=== PATIENT | male | born 2000 | race Caucasian/White ===

== ENCOUNTER 2018-03-11 14:15 | Emergency (ER) | payer OTHER ==
[2018-03-11 14:31] VITALS: BP 152/80; PULSE 94; TEMP 97.8; BMI 25.1
[2018-03-11] MEDS ORDERED: IBUPROFEN 600 MG TABLET (FP) PO ONE ×2 (15:09→15:14)
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
--- NOTE | 2018-03-12 14:03 | EKG ---
Test Reason : Blood Pressure : / mmHG Vent. Rate : 094 BPM Atrial Rate : 094 BPM P-R Int : 128 ms QRS Dur : 084 ms QT Int : 348 ms P-R-T Axes : 076 053 077 degrees QTc Int : 435 ms NORMAL SINUS RHYTHM NORMAL ECG NO PREVIOUS ECGS AVAILABLE Confirmed by MD Nehal, Tam ([id number]) on 03/12/2018 2:03:05 PM Referred By: Confirmed By:Tam Calvert MD
== END 2018-03-11 15:49 | disposition home or self-care (01) ==
LOC: JERFT 14:15
DX: S13.4XXA Sprain of ligaments of cervical spine, initial encounter (principal); S80.01XA Contusion of right knee, initial encounter; V43.52XA Car driver injured in collision with other type car in traffic accident, initial encounter; W22.11XA Striking against or struck by driver side automobile airbag, initial encounter; Y92.488 Other paved roadways as the place of occurrence of the external cause; Y93.89 Activity, other specified; Y99.8 Other external cause status
CPT/HCPCS: 73562-TC-RT-FY; 93005; 93010; 99281-25

== ENCOUNTER 2018-03-28 16:55 | Emergency (ER) | payer OTHER ==
[2018-03-28 17:24] VITALS: BMI 32.4
--- NOTE | 2018-03-28 17:24 | PDOC ---
Rapid Medical Evaluation Time Seen by Provider: 03/28/18 17:20 Medical Evaluation: Allergies Allergy/AdvReac Type Severity Reaction Status Date / Time No Known Allergies Allergy Verified 03/11/18 14:22 I have performed a brief in-person evaluation of this patient. The patient presents with a chief complaint of: chest pain, palpitations, with left arm numbness Pertinent physical exam findings: none. tachycardic to 102, 100% O2 sat on RA I have ordered the following: EKG, labs The patient will proceed to the ED for further evaluation. Discharge Disposition - Diagnosis Chest pain Qualifiers: Chest pain type: unspecified Qualified Code(s): R07.9 - Chest pain, unspecified - Referrals Referrals: Mayelin Zepeda MD [Primary Care Provider] - - Patient Instructions - Post Discharge Activity
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
[2018-03-28 18:27] LABS: BASO % 0.5 % (0-2.0); EOS % 0.5 % (0-4.5); HEMATOCRIT 47.4 % (35.4-49); HEMOGLOBIN 16.4 GM/dL (11.7-16.9); LYMPH % 23.2 % (8-40); MCHC 34.7 g/dl (32.0-35.9); MEAN CELL VOLUME 89.6 fl (80-96); MONO % 7.1 % (3.8-10.2); NEUT % 68.7 % (42.8-82.8); PLATELET COUNT 200 K/MM3 (134-434); RBC 5.29 M/mm3 (4.00-5.60); RDW 12.9 % (11.9-15.9); WHITE BLOOD COUNT 9.2 K/mm3 (4.0-10.0)
[2018-03-28] MEDS ORDERED: KETOROLAC TROMETHAMINE 30 MG/1 ML VIAL IVPUSH ONE (18:52)
[2018-03-28 18:55] LABS: ALBUMIN 4.7 g/dl (3.4-5.0); ALK PHOS 99 U/L (45-117); ANION GAP 7 MMOL/L (8-16); BILIRUBIN,TOTAL 2.4 mg/dL (0.2-1); BLOOD UREA NITROGEN 11 mg/dL (7-18); CALCIUM 9.1 mg/dL (8.5-10.1); CHLORIDE 106 mmol/L (98-107); CO2 26 mmol/L (21-32); CREATININE 0.7 mg/dL (0.55-1.3); GLUCOSE,RANDOM 100 mg/dL (74-106); POTASSIUM 3.9 mmol/L (3.5-5.1); SGOT/AST 10 U/L (15-37); SGPT/ALT 16 U/L (13-61); SODIUM 140 mmol/L (136-145); TOT PROT 8.3 g/dl (6.4-8.2)
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
[2018-03-28] MEDS ORDERED: KETOROLAC TROMETHAMINE 30 MG/1 ML VIAL ONE (19:42)
[2018-03-28 20:56] LABS: URINE APPEARANCE CLEAR; URINE BILIRUBIN NEGATIVE (<2.0 mg/dL); URINE COLOR YELLOW; URINE GLUCOSE (UA) NEGATIVE (NEGATIVE); URINE KETONE TRACE (NEGATIVE); URINE LEUK ESTERASE NEGATIVE (NEGATIVE); URINE NITRITE NEGATIVE (NEGATIVE); URINE PROTEIN NEGATIVE (NEGATIVE); URINE UROBILINOGEN NEGATIVE mg/dL (0.2-1.0)
[2018-03-28 21:05] VITALS: BP 131/91; PULSE 96; TEMP 98.5
--- NOTE | 2018-03-29 11:34 | EKG ---
Test Reason : Blood Pressure : / mmHG Vent. Rate : 097 BPM Atrial Rate : 097 BPM P-R Int : 126 ms QRS Dur : 082 ms QT Int : 330 ms P-R-T Axes : 079 053 082 degrees QTc Int : 419 ms NORMAL SINUS RHYTHM RIGHT ATRIAL ENLARGEMENT NONSPECIFIC T WAVE ABNORMALITY ABNORMAL ECG WHEN COMPARED WITH ECG OF 11-MAR-2018 14:26, NO SIGNIFICANT CHANGE WAS FOUND Confirmed by SHELBY FISCHER, VIOLETTA ([id number]) on 03/29/2018 11:33:35 AM Referred By: Confirmed By:VIOLETTA RYAN MD
== END 2018-03-28 21:51 | disposition home or self-care (01) ==
LOC: JER 16:55
PROC: 3E033NZ Introduction of Analgesics, Hypnotics, Sedatives into Peripheral Vein, Percutaneous Approach (ICD-10-PCS; principal; 2018-03-28)
DX: R07.9 Chest pain, unspecified (principal)
CPT/HCPCS: 36415; 71046-TC-FY; 72125-TC; 72128-TC; 76870-TC; 80053; 81003; 82550; 84484; 85025; 85379; 93005; 93010; 99284-25

== ENCOUNTER 2018-04-01 12:14 | Observation (INO) | payer OTHER ==
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
[2018-04-01] MEDS ORDERED: ASPIRIN 81 MG CHEWABLE TABLETS PO ONE (13:01)
[2018-04-01] MEDS ORDERED: SODIUM CHLORIDE 0.9% 500 ML INFUS.BAG IV ONE (13:01)
[2018-04-01] MEDS ORDERED: MAG HYDROX/AL HYDROX/SIMETH 30 ML UNIT-DOSE CUP PO ONE (13:01)
[2018-04-01] MEDS ORDERED: LIDOCAINE VISCOUS 2% ORAL/TOP 100 ML BOTTLE MM ONE (13:01)
[2018-04-01 14:06] LABS: ALBUMIN 4.5 g/dl (3.4-5.0); ALK PHOS 89 U/L (45-117); ANION GAP 7 MMOL/L (8-16); BILIRUBIN,TOTAL 2.5 mg/dL (0.2-1); BLOOD UREA NITROGEN 11 mg/dL (7-18); CALCIUM 9.7 mg/dL (8.5-10.1); CHLORIDE 104 mmol/L (98-107); CO2 25 mmol/L (21-32); CREATININE 0.7 mg/dL (0.55-1.3); GLUCOSE,RANDOM 85 mg/dL (74-106); MAGNESIUM 2.2 mg/dL (1.8-2.4); N-TERMINAL BNP 20.7 pg/ml (5-125); PHOSPHOROUS 3.5 mg/dL (2.5-4.9); POTASSIUM 5.2 mmol/L (3.5-5.1); SGOT/AST 36 U/L (15-37); SGPT/ALT 20 U/L (13-61); SODIUM 137 mmol/L (136-145); TOT PROT 8.1 g/dl (6.4-8.2)
[2018-04-01] MEDS ORDERED: LIDOCAINE VISCOUS 2% ORAL/TOP 20 ML UNIT-DOSE CUP ONE (14:22)
[2018-04-01] MEDS ORDERED: MAG HYDROX/AL HYDROX/SIMETH 30 ML UNIT-DOSE CUP ONE (14:23)
[2018-04-01] MEDS ORDERED: ASPIRIN 325 MG TABLET ONE (14:23)
[2018-04-01 14:29] LABS: BASO % 0.3 % (0-2.0); EOS % 0.3 % (0-4.5); HEMATOCRIT 47.4 % (35.4-49); HEMOGLOBIN 16.3 GM/dL (11.7-16.9); LYMPH % 20.9 % (8-40); MCH 30.8 pg (25.7-33.7); MCHC 34.3 g/dl (32.0-35.9); MEAN CELL VOLUME 89.8 fl (80-96); MEAN PLT VOLUME 11.1 fl (7.5-11.1); MONO % 6.6 % (3.8-10.2); NEUT % 71.9 % (42.8-82.8); PLATELET COUNT 175 K/MM3 (134-434); RBC 5.28 M/mm3 (4.00-5.60); RDW 12.5 % (11.9-15.9); WHITE BLOOD COUNT 10.3 K/mm3 (4.0-10.0)
--- NOTE | 2018-04-01 14:38 | EKG ---
Test Reason : Blood Pressure : / mmHG Vent. Rate : 077 BPM Atrial Rate : 077 BPM P-R Int : 140 ms QRS Dur : 088 ms QT Int : 370 ms P-R-T Axes : 068 042 076 degrees QTc Int : 418 ms NORMAL SINUS RHYTHM WITH SINUS ARRHYTHMIA NORMAL ECG WHEN COMPARED WITH ECG OF 28-MAR-2018 17:34, NO SIGNIFICANT CHANGE WAS FOUND Confirmed by Driss Weaver ([id number]) on 04/01/2018 2:37:51 PM Referred By: Confirmed By:Driss Weaver
--- NOTE | 2018-04-01 14:42 | PDOC ---
Attending Attestation - Resident Resident Name: Bao Silver - ED Attending Attestation I have performed the following: I have examined & evaluated the patient, The case was reviewed & discussed with the resident, I agree w/resident's findings & plan, Exceptions are as noted - HPI HPI: 04/01/18 18:23 The patient is a 18-year-old male with past medical history significant for jaundice 4 years ago presents to the emergency department accompanied with mother with abdominal discomfort, chest pain, and fatigue. The patient presents with several days of epigastric/LUQ pain, accompanied with diarrhea and gas. The patient reports hes been having a week of nonbloody diarrhea, thats white- yellowish in quality. The patient states associated symptoms of too much gas, states hes been burping excessively accompanied with a burning sensation felt in the throat. The patient currently reports having chest pain. The patient reports associated concern of fatigue, more than usual, and per mother, the patient looks more jaundiced on one side of the face. Denies fever, chills, shortness of breath, nausea, vomiting, urinary symptoms, numbness, tingling. Allergies: NKA Social history: No past or present use of tobacco, alcohol, or recreational drugs. Surgical history: None reported. PCP: Dr. Lizbeth Zepeda. - Physicial Exam PE: 04/01/18 18:23 GENERAL: Awake, alert, and fully oriented, in no acute distress HEAD: No signs of trauma EYES: PERRLA, EOMI, sclera anicteric, conjunctiva clear ENT: Auricles normal inspection, hearing grossly normal, nares patent, oropharynx clear without exudates. Moist mucosa NECK: Normal ROM, supple, no lymphadenopathy, JVD, or masses LUNGS: Breath sounds equal, clear to auscultation bilaterally. No wheezes, and no crackles HEART: Regular rate and rhythm, normal S1 and S2, no murmurs, rubs or gallops ABDOMEN: Soft, nontender, normoactive bowel sounds. No guarding, no rebound. No masses EXTREMITIES: Normal range of motion, no edema. No clubbing or cyanosis. No cords, erythema, or tenderness NEUROLOGICAL: Normal speech, cranial nerves intact, negative pronator drift, 5/ 5 strength in all 4 extremities, normal sensation to light touch in all 4 extremities, normal cerebellar exam, normal gait, normal reflexes and tone SKIN: Warm, Dry, normal turgor, no rashes or lesions noted. - Medical Decision Making 04/01/18 15:48 18yo M with second presentation to ED for CP/SOB in 1 week. Vitals with tachycardia similar to previous visit (d-dimer was negative). CXR non ischemic. Pt is not in resp distress. Not hypoxic. Case discussed with Dr. Zepeda his PMD who would like to admit him for cards c/s and cardiology w/u. Plan discussed with pt and his mother. Case presented to Dr. Zepeda for admission by Dr. Silver. Case discussed in detail with admitting physician including history, physical exam and ancillary studies. Admitting physician has assumed care for the patient, will follow all pending diagnostics and will complete the evaluation and treatment.
[2018-04-01] MEDS: RANITIDINE HCL 150 MG TABLET (FP) PO SCH (17:22)
[2018-04-01] MEDS ORDERED: ONDANSETRON *ODT* 4 MG TABLET SL PRN (18:33)
[2018-04-01 19:34] LABS: ANION GAP 10 MMOL/L (8-16); BLOOD UREA NITROGEN 8 mg/dL (7-18); CALCIUM 8.7 mg/dL (8.5-10.1); CHLORIDE 109 mmol/L (98-107); CO2 24 mmol/L (21-32); CREATININE 0.7 mg/dL (0.55-1.3); GLUCOSE,RANDOM 88 mg/dL (74-106); MAGNESIUM 2.2 mg/dL (1.8-2.4); POTASSIUM 3.7 mmol/L (3.5-5.1); SODIUM 143 mmol/L (136-145)
[2018-04-01] MEDS: DEXTROSE 5%-NORMAL SALINE 1,000 ML IV SCH (19:47)
[2018-04-02] MEDS: DEXTROSE 5%-NORMAL SALINE 1,000 ML IV SCH (05:39)
[2018-04-02] MEDS: RANITIDINE HCL 150 MG TABLET (FP) PO SCH (10:11)
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
--- NOTE | 2018-04-02 12:36 | CON.GI ---
Consult Consult Specialty:: GI Referred by:: Dr Mayelin Zepeda Reason for Consultation:: Jaundice - History of Present Illness Chief Complaint: Jaundice History of Present Illness: 18 y.o. man with no significant PMH, noted to have bilirubin of 2.5. Says he was jaundiced about 4 years ago, does not know cause, says it resolved and was not investigated. Was born in [place], does not know if he ever was tested for hepatitis B or C or if he had any liver investigation. Had sonogram here showing fatty infiltration of liver, no gallstones seen. - History Source History Provided By: Patient, Medical Record Limitations to Obtaining History: No Limitations - Past Medical History Rheumatology: No: Fibromyalgia, Gout, Lupus, Rheumatoid Arthritis, Sarcoidosis, Vasculitis, Other - Alcohol/Substance Use Hx Alcohol Use: Yes (occasional social drink) - Smoking History Smoking history: Never smoked Have you smoked in the past 12 months: No Home Medications - Allergies Allergies/Adverse Reactions: Allergies Allergy/AdvReac Type Severity Reaction Status Date / Time No Known Allergies Allergy Verified 04/01/18 12:33 - Home Medications Home Medications: Ambulatory Orders NK [No Known Home Medication] 04/01/18 Review of Systems - Review of Systems Constitutional: reports: Lethargy, Malaise Physical Exam-GI Vital Signs: Vital Signs Temperature 98.1 F 04/02/18 10:00 Pulse Rate 88 04/02/18 10:00 Respiratory Rate 18 04/02/18 10:00 Blood Pressure 122/68 04/02/18 10:00 O2 Sat by Pulse Oximetry (%) 100 04/02/18 09:00 Eyes: Yes: Other (Minimally icteric.) Labs: CBC, BMP 04/01/18 12:59 Imaging - Results Ultrasound: Report Reviewed Problem List - Problems (1) Jaundice Code(s): R17 - UNSPECIFIED JAUNDICE Assessment/Plan Jaundice. Possibilities include: 1) Gilbert's syndrome or indirect hyperbilirubinemia secondary to defective conjugation of bilirubin. This is a non-disease in that it does not cause any illness, but in times of physical stress can lead to elevated bilirubin levels. I have ordered a direct bilirubin level; if the direct is low then this is Gilbert's. 2) "Other", including hepatitis B, C, autoimmune liver disease, Deven disease. Deven disease can be a cause of fatty liver. I have explained to the patient that these diagnoses need to explored as an outpatient, they are all chronic diseases.
[2018-04-02 12:53] LABS: ALBUMIN 4.3 g/dl (3.4-5.0); ALK PHOS 88 U/L (45-117); ANION GAP 8 MMOL/L (8-16); BILIRUBIN,TOTAL 2.2 mg/dL (0.2-1); BLOOD UREA NITROGEN 8 mg/dL (7-18); CHLORIDE 109 mmol/L (98-107); CO2 26 mmol/L (21-32); CREATININE 0.7 mg/dL (0.55-1.3); GLUCOSE,RANDOM 91 mg/dL (74-106); MAGNESIUM 2.2 mg/dL (1.8-2.4); PHOSPHOROUS 2.7 mg/dL (2.5-4.9); POTASSIUM 3.9 mmol/L (3.5-5.1); SGOT/AST 6 U/L (15-37); SGPT/ALT 14 U/L (13-61); SODIUM 143 mmol/L (136-145); TOT PROT 7.6 g/dl (6.4-8.2)
[2018-04-02 13:25] LABS: BILIRUBIN,DIRECT 0.3 mg/dL (0.0-0.2)
[2018-04-02] MEDS ORDERED: PT OWN MED DRAWER 7, Y5N ONE (23:25)
[2018-04-03] MEDS: DEXTROSE 5%-NORMAL SALINE 1,000 ML IV SCH ×3 (01:12→18:54)
--- NOTE | 2018-04-03 09:20 | PN ---
Progress Note, Physician History of Present Illness: Intermittent diarrhea with mucus no bleeding feels better after bm epigastric fullnes--- - Current Medication List Current Medications: Active Medications Acetaminophen (Tylenol -) 650 mg PO Q6H PRN PRN Reason: FEVER Dextrose/Sodium Chloride (D5-Ns -) 1,000 mls @ 100 mls/hr IV ASDIR ALAN Last Admin: 04/03/18 01:12 Dose: 100 mls/hr Ondansetron HCl (Zofran Odt -) 4 mg SL Q6H PRN PRN Reason: NAUSEA AND/OR VOMITING Last Admin: 04/02/18 21:20 Dose: 4 mg Ranitidine HCl (Zantac -) 150 mg PO DAILY ALAN Last Admin: 04/02/18 10:11 Dose: 150 mg - Objective Vital Signs: Vital Signs Temperature 97.9 F 04/03/18 05:30 Pulse Rate 84 04/03/18 05:30 Respiratory Rate 16 04/03/18 05:30 Blood Pressure 132/66 04/03/18 05:30 O2 Sat by Pulse Oximetry (%) 100 04/02/18 21:00 Cardiovascular: Yes: Regular Rate and Rhythm Respiratory: Yes: Regular, CTA Bilaterally Gastrointestinal: Yes: Normal Bowel Sounds, Soft. No: Tenderness Edema: No Labs: CBC, BMP 04/01/18 12:59 04/02/18 12:00 Problem List - Problems (1) Hyperbilirubinemia Assessment/Plan: -Probably gilberts syndrome -hep profile pending Code(s): E80.6 - OTHER DISORDERS OF BILIRUBIN METABOLISM (2) IBS (irritable bowel syndrome) Assessment/Plan: must rule out vs crohns gi follow up as outpatient Code(s): K58.9 - IRRITABLE BOWEL SYNDROME WITHOUT DIARRHEA (3) Abdominal pain Assessment/Plan: -resolving -monitor Code(s): R10.9 - UNSPECIFIED ABDOMINAL PAIN Qualifiers: Abdominal location: generalized Qualified Code(s): R10.84 - Generalized abdominal pain (4) Atypical chest pain Assessment/Plan: -echo cardio noted Code(s): R07.89 - OTHER CHEST PAIN
[2018-04-03] MEDS: RANITIDINE HCL 150 MG TABLET (FP) PO SCH (10:12)
--- NOTE | 2018-04-03 11:51 | ECHO ---
Name: TANISHA ESCALANTE Exam:Adult Echocardiogram Study Date: 04/03/2018 08:24 AM Age: 18 yrs Reason For Study: PALPITATION WITH CHEST PAIN Height: 69 in Weight: 178 lb BSA: 2.0 m2 MMode/2D Measurements & Calculations IVSd: 0.78 cm Ao root diam: 2.6 cm LVIDd: 4.5 cm LA dimension: 3.4 cm LVIDs: 2.9 cm LVPWd: 0.74 cm EDV(Teich): 90.4 ml ESV(Teich): 32.5 ml Doppler Measurements & Calculations MV E max fermin: 95.3 cm/sec MR max fermin: 345.4 cm/sec MV A max fermin: 68.6 cm/sec MR max P.7 mmHg MV E/A: 1.4 MV dec time: 0.19 sec TR max fermin: 255.2 cm/sec Med Peak E' Fermin: 11.1 cm/sec TR max P.0 mmHg Med E/e': 8.6 Lat Peak E' Fermin: 18.3 cm/sec Lat E/e': 5.2 Procedure A complete two-dimensional transthoracic echocardiogram was performed (2D, M-mode, Doppler and color flow Doppler). Left Ventricle The left ventricle is normal in size. Left ventricular systolic function is normal. Ejection Fraction = 60- 65%. No regional wall motion abnormalities noted. Right Ventricle The right ventricle is normal size. The right ventricular systolic function is normal. Atria The left atrial size is normal. Right atrial size is normal. Mitral Valve There is mild mitral annular calcification. There is mild mitral regurgitation. Tricuspid Valve The tricuspid valve is normal in structure and function. There is mild tricuspid regurgitation. Pulmo nary artery systolic pressure is at least 29 mmHg assuming RA pressure of 3 mmHg. Aortic Valve The aortic valve is normal in structure and function. No aortic regurgitation is present. Pulmonic Valve The pulmonic valve is not well visualized. Great Vessels The aortic root is normal size. Pericardium/Pleura There is no pericardial effusion. Interpretation Summary The left ventricle is normal in size. Left ventricular systolic function is normal. No regional wall motion abnormalities noted. Ejection Fraction = 60-65%. The right ventricular systolic function is normal. The left atrial size is normal. Right atrial size is normal. There is mild mitral annular calcification. There is mild mitral regurgitation. There is mild tricuspid regurgitation. Pulmonary artery systolic pressure is at least 29 mmHg assuming RA pressure of 3 mmHg There is no pericardial effusion. Previous study is not available for comparison Kirill Peck MD 04/03/2018 11:51 AM
[2018-04-03 11:57] VITALS: BMI 26.2
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
[2018-04-03] MEDS: ACETAMINOPHEN 325 MG TABLET (FP) PO PRN ×2 (16:16→22:43)
[2018-04-04 06:06] LABS: HEP.C VIRUS AB <0.1 s/co ratio (0.0-0.9)
[2018-04-04 07:27] LABS: URINE APPEARANCE CLEAR; URINE BILIRUBIN NEGATIVE (<2.0 mg/dL); URINE COLOR COLORLESS; URINE GLUCOSE (UA) NEGATIVE (NEGATIVE); URINE KETONE NEGATIVE (NEGATIVE); URINE LEUK ESTERASE NEGATIVE (NEGATIVE); URINE NITRITE NEGATIVE (NEGATIVE); URINE PROTEIN NEGATIVE (NEGATIVE); URINE UROBILINOGEN NEGATIVE mg/dL (0.2-1.0)
--- NOTE | 2018-04-04 09:25 | DS ---
Physical Examination Vital Signs: Vital Signs Temperature 98.1 F 04/04/18 06:25 Pulse Rate 61 04/04/18 06:25 Respiratory Rate 20 04/04/18 06:25 Blood Pressure 129/53 L 04/04/18 06:25 O2 Sat by Pulse Oximetry (%) 99 04/03/18 21:00 Cardiovascular: Yes: Regular Rate and Rhythm Respiratory: Yes: Regular, CTA Bilaterally Gastrointestinal: Yes: Normal Bowel Sounds, Soft. 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 -hep profile pending Code(s): E80.6 - OTHER DISORDERS OF BILIRUBIN METABOLISM (2) IBS (irritable bowel syndrome) Assessment/Plan: must rule out vs crohns gi follow up as outpatient Code(s): K58.9 - IRRITABLE BOWEL SYNDROME WITHOUT DIARRHEA (3) Abdominal pain Assessment/Plan: -resolved -monitor Code(s): R10.9 - UNSPECIFIED ABDOMINAL PAIN Qualifiers: Abdominal location: generalized Qualified Code(s): R10.84 - Generalized abdominal pain (4) Atypical chest pain Assessment/Plan: -echo normal cardio noted Code(s): R07.89 - OTHER CHEST PAIN Condition: Stable - Instructions Referrals: Mayelin Zepeda MD [Primary Care Provider] - 2 Weeks - Home Medications Comprehensive Discharge Medication List: Ambulatory Orders NK [No Known Home Medication] 04/01/18
[2018-04-04] MEDS: RANITIDINE HCL 150 MG TABLET (FP) PO SCH (09:59)
[2018-04-04 10:19] VITALS: BP 114/53; PULSE 64; TEMP 98.3
== END 2018-04-04 10:26 | disposition home or self-care (01) ==
LOC: JER 12:14 → INTOOBSV 15:48 → JERBED 15:48 → UNDOADMOB 15:48 → JERBED 16:49 → J4S 22:09 → JERBED 22:09
PROVIDERS: ADMIT Family Medicine; ATTEND Family Medicine
PROC: 3E0337Z Introduction of Electrolytic and Water Balance Substance into Peripheral Vein, Percutaneous Approach (ICD-10-PCS; principal; 2018-04-01)
DX: R07.89 Other chest pain (principal); R10.84 Generalized abdominal pain; K52.9 Noninfective gastroenteritis and colitis, unspecified; R17 Unspecified jaundice; E80.6 Other disorders of bilirubin metabolism; K58.9 Irritable bowel syndrome, unspecified
CPT/HCPCS: 36415; 71046-TC-FY; 76705-TC; 80048; 80053; 80074; 81003; 82248; 82550; 83690; 83735; 83880; 84100; 84443; 84484; 85025; 87086; 93005; 93010; 93306-TC; 99283-25; G0378; Q0162

== ENCOUNTER 2022-07-15 11:47 | Emergency (ER) | payer OTHER ==
[2022-07-15 12:10] VITALS: BP 127/80; RESP 17; TEMP 98.2; BMI 31.1
[2022-07-15] MEDS ORDERED: FAMOTIDINE 20 MG/50 ML IVPB 20 MG/50 ML MG IVPB ONE (12:44)
[2022-07-15] MEDS ORDERED: SUCRALFATE 1 GM TABLET (FP) PO ONE (12:44)
[2022-07-15] MEDS ORDERED: MAG HYDROX/AL HYDROX/SIMETH -MYLANTA- ORAL SUSPENSION PO ONE (12:44)
[2022-07-15] MEDS ORDERED: LACTATED RINGERS SOLUTION 1000 ML INFUS.BAG IV ONE (12:44)
[2022-07-15] MEDS ORDERED: ONDANSETRON 4 MG/2 ML VIAL IVPUSH ONE (12:45)
[2022-07-15] MEDS ORDERED: ACETAMINOPHEN 1000 MG/100 ML BAG IVPB ONE (12:48)
[2022-07-15] MEDS ORDERED: ACETAMINOPHEN INJECTION 100 ML IVPB ONE (13:11)
[2022-07-15] MEDS ORDERED: ONDANSETRON 4 MG/2 ML VIAL ONE (13:11)
[2022-07-15] MEDS ORDERED: SUCRALFATE 1 GM TABLET (FP) ONE (13:11)
[2022-07-15] MEDS ORDERED: MAG HYDROX/AL HYDROX/SIMETH 30 ML UNIT-DOSE CUP ONE (13:11)
[2022-07-15] MEDS ORDERED: FAMOTIDINE 10 MG/ML VIAL IVPB ONE (13:12)
[2022-07-15 13:42] LABS: BASO % 0.4 % (0-2.0); EOS % 0.1 % (0-4.5); HEMATOCRIT 46.4 % (35.4-49); HEMOGLOBIN 15.9 GM/dL (11.7-16.9); LYMPH % 4.2 % (8-40); MCH 30.3 pg (25.7-33.7); MCHC 34.3 g/dl (32.0-35.9); MEAN CELL VOLUME 88.4 fl (80-96); MEAN PLT VOLUME 9.7 fl (7.5-11.1); MONO % 5.4 % (3.8-10.2); NEUT % 89.9 % (42.8-82.8); PLATELET COUNT 190 10^3/uL (134-434); RBC 5.24 M/mm3 (4.00-5.60); RDW 12.9 % (11.9-15.9); WHITE BLOOD COUNT 13.2 K/mm3 (4.0-10.0)
[2022-07-15 14:10] LABS: CALCIUM 9.1 mg/dL (8.5-10.1)
[2022-07-15 14:11] LABS: BLOOD UREA NITROGEN 16.7 mg/dL (7-18)
[2022-07-15 14:13] LABS: CREATININE 0.7 mg/dL (0.55-1.3)
[2022-07-15 14:15] LABS: TOT PROT 7.6 g/dl (6.4-8.2)
[2022-07-15 14:56] VITALS: PULSE 99
== END 2022-07-15 15:30 | disposition home or self-care (01) ==
LOC: JER 11:47
PROC: 3E0333Z Introduction of Anti-inflammatory into Peripheral Vein, Percutaneous Approach (ICD-10-PCS; principal; 2022-07-15)
PROC: 3E033GC Introduction of Other Therapeutic Substance into Peripheral Vein, Percutaneous Approach (ICD-10-PCS; 2022-07-15)
PROC: 3E033GC Introduction of Other Therapeutic Substance into Peripheral Vein, Percutaneous Approach (ICD-10-PCS; 2022-07-15)
DX: R11.2 Nausea with vomiting, unspecified (principal); R19.7 Diarrhea, unspecified
CPT/HCPCS: 0241U-QW; 36415; 80053; 83690; 85025; 99284-25

== ENCOUNTER 2022-10-25 23:02 | Emergency (ER) | payer OTHER ==
[2022-10-25 23:07] VITALS: TEMP 98; BMI 32.0
[2022-10-25] MEDS ORDERED: ONDANSETRON *ODT* 4 MG TABLET SL ONE (23:39)
[2022-10-25] MEDS ORDERED: ONDANSETRON *ODT* 4 MG TABLET ONE (23:42)
[2022-10-26] MEDS ORDERED: PROMETHAZINE HCL 50 MG/1 ML AMP IM ONE (00:05)
[2022-10-26] MEDS ORDERED: PROMETHAZINE HCL 25 MG/1 ML VIAL ONE (00:11)
[2022-10-26 01:04] VITALS: BP 121/81; PULSE 79; RESP 18
== END 2022-10-26 01:16 | disposition home or self-care (01) ==
LOC: JER 23:02
PROC: 3E023GC Introduction of Other Therapeutic Substance into Muscle, Percutaneous Approach (ICD-10-PCS; principal; 2022-10-26)
DX: R53.1 Weakness (principal); R11.2 Nausea with vomiting, unspecified; R10.9 Unspecified abdominal pain; K52.9 Noninfective gastroenteritis and colitis, unspecified; B34.9 Viral infection, unspecified; Z20.822 Contact with and (suspected) exposure to COVID-19
CPT/HCPCS: 0241U-QW; 99284-25; Q0162

== ENCOUNTER 2023-03-28 15:40 | Emergency (ER) | payer BC, OTHER ==
[2023-03-28 16:00] VITALS: BP 140/85; PULSE 85; RESP 18; TEMP 98.3; BMI 29.0
[2023-03-28] MEDS ORDERED: ALBUTEROL SO4 0.5 % INH SOLN 2.5 MG/0.5 ML VIAL.NEB. NEB ONE (16:31)
[2023-03-28] MEDS ORDERED: ALBUTEROL SO4 0.083% IH SOL 2.5 MG/3 ML VIAL.NEB. NEB ONE ×3 (16:35→17:26)
== END 2023-03-28 17:57 | disposition home or self-care (01) ==
LOC: JER 15:40
PROC: 3E0F7GC Introduction of Other Therapeutic Substance into Respiratory Tract, Via Natural or Artificial Opening (ICD-10-PCS; principal; 2023-03-28)
PROC: 3E0F7GC Introduction of Other Therapeutic Substance into Respiratory Tract, Via Natural or Artificial Opening (ICD-10-PCS; 2023-03-28)
DX: R06.02 Shortness of breath (principal); R07.9 Chest pain, unspecified; R05.9 Cough, unspecified; J20.8 Acute bronchitis due to other specified organisms; Z20.822 Contact with and (suspected) exposure to COVID-19
CPT/HCPCS: 0241U-QW; 71046-TC-FY; 99284-25

== ENCOUNTER 2023-05-14 19:09 | Emergency (ER) | payer BC ==
[2023-05-14 19:16] VITALS: BP 157/77; PULSE 102; RESP 18; TEMP 98.3; BMI 29.5
[2023-05-14 20:54] LABS: EPI CELLS 3 /uL (0-25.1); HYALINE CASTS 0 /uL (0-3.1); PH,URINE 5.5 (5.0-8.0); URINE APPEARANCE CLEAR; URINE BACTERIA 4 /uL (0-1359); URINE BILIRUBIN NEGATIVE (NEGATIVE); URINE COLOR YELLOW; URINE GLUCOSE (UA) NEGATIVE (NEGATIVE); URINE KETONE NEGATIVE (NEGATIVE); URINE LEUK ESTERASE NEGATIVE (NEGATIVE); URINE NITRITE NEGATIVE (NEGATIVE); URINE PROTEIN NEGATIVE (NEGATIVE); URINE RBC 15 /uL (0-23.9); URINE UROBILINOGEN 0.2 mg/dL (0.2-1.0); URINE WBC 5 /uL (0-25.8)
== END 2023-05-14 23:02 | disposition home or self-care (01) ==
LOC: JER 19:09
DX: N50.812 Left testicular pain (principal); N50.82 Scrotal pain; N43.3 Hydrocele, unspecified; I86.1 Scrotal varices
CPT/HCPCS: 36415; 76870-TC; 81003; 87086; 87491; 87591; 99284-25